=== PATIENT | female | born 1950 | race Two or more races ===

== ENCOUNTER → 2018-03-14 | Outpatient (CLI) | payer MEDICARE ==
--- NOTE | 2018-03-14 15:20 | RADIOLOGY REPORT (SQ) ---
EXAM DESCRIPTION: CAROTID DOPPLER COMPLETED DATE/TIME: 03/14/2018 2:59 pm REASON FOR STUDY: RT CAROTID STENOSIS/OCCLUSION I65.21 OCCLUSION AND STENOSIS OF RIGHT CAROTID PERCY RY COMPARISON: None. TECHNIQUE: Grayscale ultrasound, Doppler velocity and spectra, and color Doppler images acquired of the extra-cranial carotid and vertebral arteries. Images stored on PACS. LIMITATIONS: None. FINDINGS: RIGHT CAROTID CCA Velocities: Within normal limits. ICA Velocities Peak systolic 0.96 m/s. End diastolic 0.39 m/s. Proximal ICA/CCA peak systolic ratio 1.14. Spectra normal. No significant plaque. LEFT CAROTID CCA Velocities: Within normal limits. ICA Velocities Peak systolic 1.05 m/s. End diastolic 0.44 m/s. Proximal ICA/CCA peak systolic ratio 1.33. Spectra normal. No significant plaque. VERTEBRAL ARTERIES: Antegrade flow. Normal waveforms. SUBCLAVIAN ARTERIES: No finding. OTHER: No other significant finding. IMPRESSION: NO HEMODYNAMICALLY SIGNIFICANT STENOSIS. COMMENT: Quality ID #[id number]: Velocity criteria are extrapolated from the diameter data as defined by t he Society of Radiologists in Ultrasound Consensus Conference. Radiology 2003: 229; 340-346. TECHNICAL DOCUMENTATION: JOB ID: [id number] [employer]- All Rights Reserved Reading location - IP/workstation name: [email or web address]
== END ==
LOC: SP 10:22
PROVIDERS: ATTEND Physician Assistant
DX: I65.21 Occlusion and stenosis of right carotid artery (principal)
CPT/HCPCS: 93880

== ENCOUNTER 2018-03-26 07:59 | Day surgery (SDC) | payer MEDICARE ==
[~2018-03-26 07:59] MED LIST: BUPIVACAINE HCL 0.25 % INJ/PF (2.5 MG/1 ML) 30 ML VIAL ONE; FENTANYL CITRATE INJ/PF 100 MCG/2 ML AMPUL ONE; LIDOCAINE 0.5% INJ-PF (5 MG/ML) 50 ML SDV ONE; MIDAZOLAM 2 MG/2 ML INJ ONE; PROPOFOL INJ 200 MG/20 ML VIAL IV ONE
[2018-03-26] MEDS ORDERED: ALBUTEROL SULFATE 0.083% NEB 2.5 MG/3 ML AMPUL NEB ONE (09:01)
[2018-03-26 09:03] LABS: HEMATOCRIT 38.6 % (36.0-47.0); HEMOGLOBIN 12.7 g/dL (12.0-15.5); MEAN CORPUSCULAR HEMOGLOBIN 28.6 pg (27.0-33.4); MEAN CORPUSCULAR HGB CONC 32.9 g/dL (32.0-36.0); MEAN CORPUSCULAR VOLUME 87 fl (80-97); PLATELET COUNT 239 10^3/uL (150-450); RED BLOOD COUNT 4.43 10^6/uL (3.72-5.28); RED CELL DISTRIBUTION WIDTH 17.6 % (11.5-14.0); WHITE BLOOD COUNT 14.8 10^3/uL (4.0-10.5)
[2018-03-26 09:17] LABS: BLOOD UREA NITROGEN 20 mg/dL (7-20); CALCIUM 9.7 mg/dL (8.4-10.2); GLUCOSE 83 mg/dL (75-110); POTASSIUM 4.1 mmol/L (3.6-5.0)
[2018-03-26 09:22] LABS: CARBON DIOXIDE 30 mmol/L (22-30); CHLORIDE 110 mmol/L (98-107); SODIUM 142.5 mmol/L (137-145)
[2018-03-26 09:31] LABS: ANION GAP 3 (5-19)
[2018-03-26] MEDS ORDERED: PROMETHAZINE HCL INJ 25 MG/1 ML VIAL IV PRN (09:34)
[2018-03-26] MEDS ORDERED: OXYCODONE-ACETAMINOPHEN 5-325 MG TABLET PO PRN ×2 (09:34)
[2018-03-26] MEDS ORDERED: ONDANSETRON HCL INJ/PF 4 MG/2 ML SDV IV PRN (09:34)
[2018-03-26] MEDS ORDERED: DIPHENHYDRAMINE HCL 50 MG/ML VIAL IV PRN (09:34)
[2018-03-26] MEDS ORDERED: MIDAZOLAM 2 MG/2 ML INJ ONE (09:43)
[2018-03-26] MEDS ORDERED: METOCLOPRAMIDE HCL INJ/PF 10 MG/2 ML SDV ONE (09:44)
[2018-03-26] MEDS ORDERED: DEXAMETHASONE SOD PHOSPHATE INJ 4 MG/1 ML VIAL ONE (09:44)
[2018-03-26] MEDS ORDERED: FAMOTIDINE INJ/PF 20 MG/2 ML SDV IV ONE (09:44)
--- NOTE | 2018-03-26 11:07 | Discharge Summary ---
Discharge Summary (SDC) - Discharge Final Diagnosis: #1 temporal arteritis, suspected. 2. COPD. 3. Myasthenia gravis. 4. Warthin's tumor. 5. Diabetes mellitus type 2. 6. Hypertension. Date of Surgery: 03/26/18 Discharge Date: 03/26/18 Condition: Good Treatment or Instructions: Discharge home [after recovery per ASU criteria]. Diet , diabetic,as tolerated, when fully awake advance as tolerated. Activities within moderation encouraged. Follow up in my office by appointment in about [1 week]. Call for appointment. Leave wounds [covered], [keep clean and dry, until office visit in 1 week]. Hold of on school/work [until evaluation in office]. Meds per med rec. OTC pain meds. May shower [in 48 hrs], [try to keep operated area as dry as possible]. Referrals: ANTHONY RAMIREZ PA-C [Primary Care Provider] - Discharge Diet: Other (Comments) - Diabetic. Respiratory Treatments at Home: Deep Breathing/Coughing Discharge Activity: Activity As Tolerated Report the Following to Your Physician Immediately: Shortness of Breath, Unusual Bleeding
--- NOTE | 2018-03-26 11:10 | Operative Report ---
Operative Report DATE OF SURGERY: 03/26/18 PREOPERATIVE DIAGNOSIS: #1 temporal arteritis, suspected. 2. COPD. 3. Myast henia gravis. 4. Warthin's tumor. 5. Diabetes mellitus type 2. 6. Hypertension. POSTOPERATIVE DIAGNOSIS: #1 temporal arteritis, suspected. 2. COPD. 3. Myasthenia gravis. 4. Warthin's tumor. 5. Diabetes mellitus type 2. 6. Hypertension. OPERATION: Right temporal artery biopsy. SURGEON: ROSI HUERTAS WEAVER HAND: None. ANESTHESIA: LMAC TISSUE REMOVED OR ALTERED: Portion of the right temporal artery. COMPLICATIONS: None. ESTIMATED BLOOD LOSS: 5 mL. INTRAOPERATIVE FINDINGS: Of a fairly normal looking right temporal artery small and difficult to find, largely because of quite impressive sinus arrhythmia so that pulses, palpable or foreign in between. PROCEDURE: Indication: This patient is significant for having right-sided temporal headaches, suboccipital headache and elevated CRP erythrocyte sedimentation rate. For at least 2 weeks. Given this background biopsy of the temporal artery is indicated in an attempt to confirm or refute temporal arteritis. The risks, benefits, expected outcome and alternatives as well as the understanding that there is a significant was negative. We discussed with the patient and her spouse. They are accepting of the risks and wished to proceed. The right side for biopsy as this was a side of most prominent headache. PROCEDURE: The right temporal area was prepared with [chlorhexidine] and draped out with sterile linen. After the"universal time-out", in which it was confirmed that the patient [for biopsy not need antibiotic], the procedure commenced. The patient was appropriately anesthetized. The topographic location of the temporal artery was identified using a Doppler instrument and also palpation. It was marked in ink.. A dilute solution of local anesthesia was generously infiltrated in the skin and subcutaneous tissues above and around the area. An incision was made as marked. This went through to the subcutaneous tissues. Dissection now proceeded By spreading a hemostat to reveal the artery beneath the fascia. The artery was dissected out for a distance of about 2 cm. Both ends were clamped. The intervening section was excised and carefully submitted for pathology in formalin. Both ends were now suture ligated using 5-0 Prolene suture The wound was now closed using [a single layer of interrupted sutures. These were of 5-0 Prolene. A sterile dressing was applied and the procedure concluded.
[2018-03-26 12:46] VITALS: BP 147/70
== END 2018-03-26 12:43 | disposition home or self-care (01) ==
LOC: OROUT 07:59
PROVIDERS: ATTEND Surgery
DX: R51 Headache (principal); J44.9 Chronic obstructive pulmonary disease, unspecified; G70.00 Myasthenia gravis without (acute) exacerbation; D11.9 Benign neoplasm of major salivary gland, unspecified; I12.9 Hypertensive chronic kidney disease with stage 1 through stage 4 chronic kidney disease, or unspecified chronic kidney disease; E11.22 Type 2 diabetes mellitus with diabetic chronic kidney disease; N18.9 Chronic kidney disease, unspecified; M79.7 Fibromyalgia; K44.9 Diaphragmatic hernia without obstruction or gangrene; G62.9 Polyneuropathy, unspecified; K58.9 Irritable bowel syndrome, unspecified; G47.30 Sleep apnea, unspecified; M17.0 Bilateral primary osteoarthritis of knee; F17.210 Nicotine dependence, cigarettes, uncomplicated; Z79.51 Long term (current) use of inhaled steroids; Z79.899 Other long term (current) drug therapy; Z79.84 Long term (current) use of oral hypoglycemic drugs; Z79.82 Long term (current) use of aspirin; Z88.5 Allergy status to narcotic agent
CPT/HCPCS: 36415; 83735; 85027; 80048; 88305 ×2; 37609; J2250; J1100; J3490; J2765; J2704; S0028; A9270; 352; J3010